=== PATIENT | male | born 1990 | race Caucasian/White ===

== ENCOUNTER 2017-04-01 12:37 | Emergency (ER) ==
[2017-04-01 12:46] VITALS: BP 126/79; TEMP 97.8; BMI 21.1
--- NOTE | 2017-04-01 13:20 | DI ---
EXAM: Right hand three-view HISTORY: Pain COMPARISON: None FINDINGS: There is a minimally displaced fracture at the base of the fifth metacarpal. The joints ar e normal. No focal soft tissue abnormality. IMPERSSION: Minimally displaced fracture base of fifth metacarpal.
--- NOTE | 2017-04-01 13:21 | DI ---
EXAM: Right wrist three-view HISTORY: Pain COMPARISON: None FINDINGS: Minimally displaced fracture base of fifth metacarpal. No fracture or dislocation of the b ones of the wrist. No focal soft tissue abnormality. IMPERSSION: 1. Minimally displaced fracture base of fifth metacarpal. 2. No fracture or dislocation of the bones of the wrist.
--- NOTE | 2017-04-01 13:33 | ED.PDOC ---
General ED Provider: Dr. GALLITO LAZO Chief Complaint: Hand Pain/Injury Stated Complaint: right hand pain Time Seen by Physician: 12:45 (seen with jose elias present) Information Source: Patient Exam Limitations: No limitations Nursing and Triage Documentation Reviewed and Agree: Yes Reviewed sepsis parameters & appropriate labs ordered?: Yes System Inflammatory Response Syndrome: Not Applicable Sepsis Protocol: For patient's 13 years and over: Temp is 96.8 and below OR 101 and greater Pulse >90 BPM Resp >20/minute Acutely Altered Mental Status Are patient's symptoms suggestive of a new infection, such as: -Pneumonia -Skin, Soft Tissue -Endocarditis -UTI -Bone, Joint Infection -Implantable Device -Acute Abdominal Infection -Wound Infection -Meningitis -Blood Stream Catheter Infection -Unknown System Inflammatory Response Syndrome: Not Applicable Musculoskeletal Complaint Exam - Hand/Wrist Complaint/Exam Location of Pain: Reports: Right, Hand, Wrist Mechanism of Injury: Reports: Trauma (blunt force ) Onset/Duration: 2 days ago fall Symptoms Are: Still present Initial Severity: Mild Current Severity: Mild Location: Reports: Discrete (over 5th mcp bone) Character: Reports: Aching Alleviating: Reports: Rest Aggravating: Reports: Movement Associated Signs and Symptoms: Reports: Swelling Tenderness: Present: Carpal, Metacarpal (5th base ). Absent: Radius, Ulna, Snuff box, Phalanx Compartment Syndrome Risk Factors: Present: Pain Differential Diagnoses: Closed Fracture Review of Systems - Review Of Systems Constitutional: Reports: No symptoms Eyes: Reports: No symptoms Ears, Nose, Mouth, Throat: Reports: No symptoms Respiratory: Reports: No symptoms Cardiac: Reports: No symptoms GI: Reports: No symptoms : Reports: No symptoms Musculoskeletal: Reports: Other (right hand pain ) Skin: Reports: No symptoms Neurological: Reports: No symptoms Endocrine: Reports: No symptoms Hematologic/Lymphatic: Reports: No symptoms All Other Systems: Reviewed and Negative Past Medical History - Past Medical History Previously Healthy: Yes Endocrine: Reports: None Cardiovascular: Reports: None Respiratory: Reports: None Hematological: Reports: None Gastrointestinal: Reports: None Genitourinary: Reports: None Neuro/Psych: Reports: None Musculoskeletal: Reports: None Cancer: Reports: None - Surgical History General Surgical History: Reports: None - Family History Family History: Reports: None - Social History Smoking Status: Never smoker Hx Substance Use: No Alcohol Screening: Occasionally Physical Exam - Physical Exam Appearance: Well-appearing, No pain distress, Well-nourished Eyes: CHRISTIN, EOMI, Conjunctiva clear ENT: Ears normal, Nose normal, Oropharynx normal Respiratory: Airway patent, Breath sounds clear, Breath sounds equal, Respirations nonlabored Cardiovascular: RRR, Pulses normal, No rub, No murmur GI/: Soft, Nontender, No masses, Bowel sounds normal, No Organomegaly Musculoskeletal: Limited ROM (base of the 5th MCP EDEMA /PAIN) Skin: Warm, Dry, Normal color Neurological: Sensation intact, Motor intact, Reflexes intact, Cranial nerves intact, Alert, Oriented Psychiatric: Affect appropriate, Mood appropriate Interpretation - Radiology Interpretation Radiology Interpretation By: Radiologist Radiology Results: Positive (FX BASE 5TH MCP) Critical Care Note - Critical Care Note Total Time (mins): 0 Course - Course Orders, Labs, Meds: Orders Category Date Time Status HAND, RIGHT 3 VIEWS Stat RADS 04/01/17 12:55 Completed WRIST, RIGHT 3 VIEWS Stat RADS 04/01/17 12:55 Completed Vital Signs: Temp Pulse Resp BP Pulse Ox 04/01/17 12:38 97.8 F 70 20 126/79 97 Departure - Departure Time of Disposition: 13:33 (FILMS SHOWN TO THE PT WITH NURSES CHANDRIKA AND PAULA PRESENT EXPLAINED WHAT IS BROKEN AND HE MUST CONTACT AT [facility]) Disposition: HOME SELF-CARE Discharge Problem: Injury of hand, Hand pain Fractured hand Qualifiers: Encounter type: initial encounter Fracture type: closed Laterality: right Qualified Code(s): S62.91XA - Unspecified fracture of right wrist and hand, initial encounter for closed fracture Instructions: Hand Fracture (ED) Condition: Good Pt referred to PMD for follow-up: Yes Additional Instructions: UNFORTUNATELY YOUR HAND IS BROKEN AT LOCATION I DEMONSTRATED TO YOU ON THE XRAY .Please call your Family Physician as soon as possible to schedule a follow -up appointment. CONTACT [facility] PLEASE Prescriptions: Hydrocodone/Acetaminophen [[place] 10-325 Tablet] 1 each PO Q8HR #12 tablet Allergies/Adverse Reactions: Allergies laundry detergent Adverse Reaction (Uncoded 04/01/17 12:47) Home Medications: Ambulatory Orders Hydrocodone/Acetaminophen [[place] 10-325 Tablet] 1 each PO Q8HR #12 tablet
== END 2017-04-01 13:40 | disposition home or self-care (01) ==
LOC: ED 12:37
DX: S62.316A Displaced fracture of base of fifth metacarpal bone, right hand, initial encounter for closed fracture (principal); W19.XXXA Unspecified fall, initial encounter
CPT/HCPCS: 99283